=== PATIENT | female | born 1980 | race Caucasian/White ===

== ENCOUNTER 2018-09-16 23:10 | Emergency (ER) | payer BC ==
--- NOTE | 2018-09-17 00:57 | ER Document Report ---
ED Medical Screen (RME) - General Chief Complaint: Skin Problem Stated Complaint: SKIN IRRITATION Time Seen by Provider: 09/17/18 00:47 Notes: Patient is a 38-year-old female who presents to the emergency department with an open wound noted to her right wrist and right lower leg. She states that she first started off with a cut on her right wrist and it began to develop an abscess and she lanced it 2 days ago and it drained. She also noticed another abscess forming on her right lower leg and lanced that and had purulent drainage from that area. She denies any fever. Patient does have a history of MRSA. She does have a history of IV drug abuse, but denies any current IV drug abuse. Exam: Open abscess noted to right wrist and right lower leg. Mild erythema noted around abscess. I have greeted and performed a rapid initial assessment of this patient. A comprehensive ED assessment and evaluation of the patient, analysis of test results and completion of medical decision making process will be conducted by an additional ED providers. TRAVEL OUTSIDE OF THE [place] IN LAST 30 DAYS: No Physical Exam - Vital signs Vitals: Temp Pulse Resp BP Pulse Ox 98.4 F 76 20 119/84 96 09/16/18 23:15 09/16/18 23:15 09/16/18 23:15 09/16/18 23:15 09/16/18 23:15 Course - Vital Signs Vital signs: Temp Pulse Resp BP Pulse Ox 98.4 F 76 20 119/84 96 09/16/18 23:15 09/16/18 23:15 09/16/18 23:15 09/16/18 23:15 09/16/18 23:15
--- NOTE | 2018-09-17 02:37 | RADIOLOGY REPORT (SQ) ---
EXAM DESCRIPTION: XR RIGHT WRIST 3 OR MORE VIEWS COMPLETED DATE/TME: 09/17/2018 00:54 CLINICAL HISTORY: 38 years, Female, infected cut in the region of the proximal fifth metacarpal, eval osteomyelitis COMPARISON: None. NUMBER OF VIEWS: TECHNIQUE: LIMITATIONS: None. FINDINGS: There is soft tissue swelling, in the region of the laceration. There is no evidence of radiopaque foreign body within the soft tissues. No evidence of osteomyelitis. Mineralization of bone appears normal. IMPRESSION: Soft tissue swelling. copyright 2010 [employer]- All Rights Reserved
[2018-09-17 02:56] LABS: ABSOLUTE EOSINOPHILS # (AUTO) 0.1 10^3/uL (0.0-0.6); ABSOLUTE LYMPHOCYTES (AUTO) 2.3 10^3/uL (0.5-4.7); ABSOLUTE MONOCYTES (AUTO) 0.5 10^3/uL (0.1-1.4); ABSOLUTE NEUT (AUTO) 2.1 10^3/uL (1.7-8.2); BASOPHILS % (AUTO) 0.3 % (0-2); EOSINOPHILS % (AUTO) 2.3 % (0-6); HEMOGLOBIN 12.4 g/dL (12.0-15.5); LYMPHOCYTES % (AUTO) 45.5 % (13-45); MEAN CORPUSCULAR HEMOGLOBIN 29.9 pg (27.0-33.4); MEAN CORPUSCULAR HGB CONC 33.5 g/dL (32.0-36.0); MEAN CORPUSCULAR VOLUME 89 fl (80-97); MONOCYTES % (AUTO) 9.6 % (3-13); PLATELET COUNT 231 10^3/uL (150-450); RED BLOOD COUNT 4.14 10^6/uL (3.72-5.28); RED CELL DISTRIBUTION WIDTH 13.4 % (11.5-14.0); SEGMENTED NEUTROPHILS % (AUTO) 42.3 % (42-78); TOTAL CELLS COUNTED % (AUTO) 100 %
[2018-09-17] MEDS ORDERED: LIDOCAINE 1% INJ-PF (10 MG/ML) 30 ML SDV INJ ONE (04:27)
[2018-09-17] MEDS ORDERED: CEPHALEXIN 500 MG CAPSULE PO ONE (04:28)
[2018-09-17] MEDS ORDERED: SULFAMETHOXAZOLE/TRIMETHOPRIM 800-160 MG TABLET PO ONE (04:28)
[2018-09-17] MEDS ORDERED: DOXYCYCLINE HYCLATE 100 MG TABLET PO ONE (04:29)
--- NOTE | 2018-09-17 04:35 | ER Document Report ---
ED General - General Chief Complaint: Skin Problem Stated Complaint: SKIN IRRITATION Time Seen by Provider: 09/17/18 00:47 Notes: Patient is a pleasant 2-year-old female presents with complaint of skin infection. Patient says she got a cut of her right wrist earlier in the week. She says that 2 days ago started to open back up and then she started having some purulent drainage from the area. She is over the dorsum of the wrist. She then also started to notice a few small areas of erythema and possible infection developing on the right lower leg. She did try to cut one open herself. She denies any fevers. No vomiting. She is a previous history of MRSA several years ago. No current IV drug abuse. She has no other complaints at this time. No systemic symptoms. TRAVEL OUTSIDE OF THE [place] IN LAST 30 DAYS: No - Related Data Allergies/Adverse Reactions: No Known Allergies Allergy (Unverified 09/17/18 04:12) Past Medical History - Social History Smoking Status: Unknown if Ever Smoked Frequency of alcohol use: None Drug Abuse: None Family History: Reviewed & Not Pertinent Review of Systems - Review of Systems Notes: My Normal Review Basic REVIEW OF SYSTEMS: CONSTITUTIONAL : Denies fever, chills, or sweats. RESPIRATORY: Denies cough, cold, or chest congestion. Denies shortness of breath, difficulty breathing, or wheezing. GASTROINTESTINAL: Denies abdominal pain. Denies nausea, vomiting MUSCULOSKELETAL: Denies neck or back pain or joint pain or swelling. SKIN: Open sore on right wrist. 3 small areas of erythema on the right lower leg. NEUROLOGICAL: Denies sensory or motor loss. ALL OTHER SYSTEMS REVIEWED AND NEGATIVE. Physical Exam - Vital signs Vitals: Temp Pulse Resp BP Pulse Ox 98.4 F 76 20 119/84 96 09/16/18 23:15 09/16/18 23:15 09/16/18 23:15 09/16/18 23:15 09/16/18 23:15 - Notes Notes: General Appearance: Well nourished, alert, cooperative, no acute distress, no obvious discomfort. Ill-appearing. Vitals: reviewed, See vital signs table. Eyes: PERRL, EOMI, Conjuctiva clear Mouth: No decreasd moisture Extremities: good pulses in all extremities, no swelling or tenderness in the extremities, no edema. Skin: warm, dry, has a small centimeter open sore on the dorsum of the right wrist which is where she had a laceration open back up. There is a small amount of surrounding erythema. No purulent discharge at this time. No fluctuance. Patient also has 3 areas of erythema consistent with localized cellulitis on her right lower leg. There is one open area where the patient tried to incise and drain a possible abscess herself. There is no current drainage at this time. There is no fluctuance or need for further incision on any of the areas of erythema. Neuro: speech clear, oriented x 3, normal affect, responds appropriately to questions. Course - Re-evaluation Re-evalutation: 09/17/18 04:36 Patient has what appears to be infection likely started after laceration occurred on patient's right wrist. Patient was placed on doxycycline. She is encouraged to have a low threshold to return to ER if she has spreading redness or swelling, fevers, or that she is worse in any way. Patient informed to return to ER for reevaluation in 3 to 4 days if her symptoms are not improving with antibiotic. Patient agrees with plan will be discharged home. - Vital Signs Vital signs: Temp Pulse Resp BP Pulse Ox 98.4 F 76 20 119/84 96 09/16/18 23:15 09/16/18 23:15 09/16/18 23:15 09/16/18 23:15 09/16/18 23:15 - Laboratory Result Diagrams: 09/17/18 02:40 Laboratory results interpreted by me: 09/17/18 02:40 Lymphocytes % 45.5 H Discharge - Discharge Clinical Impression: Cellulitis Qualifiers: Site of cellulitis: unspecified site Qualified Code(s): L03.90 - Cellulitis, unspecified Condition: Good Disposition: HOME, SELF-CARE Additional Instructions: Please take the antibiotic as prescribed. The antibiotic is called doxycycline. Doxycycline will make your skin more sensitive to the sun so please make sure you keep your skin covered or wear sunscreen whenever out in the sun. Please return to the ER for reevaluation if you are not seeing any improvement after 3 to 4 days of being on antibiotic. Please return to the ER immediately if you have spreading redness, increasing swelling, fevers, or feel unwell. Prescriptions: Doxycycline Hyclate 100 mg PO BID #14 capsule
[2018-09-17 05:12] VITALS: BP 116/75
== END 2018-09-17 05:00 | disposition home or self-care (01) ==
LOC: ER 23:10
DX: L03.113 Cellulitis of right upper limb (principal); S61.511A Laceration without foreign body of right wrist, initial encounter; X58.XXXA Exposure to other specified factors, initial encounter
CPT/HCPCS: 36415; 85025; 99283